=== PATIENT | female | born 1960 | race Hispanic/Latino ===

== ENCOUNTER 2020-09-02 13:12 | Emergency (ER) | payer MEDICAID ==
[2020-09-02 13:29] VITALS: BP 90/79
[2020-09-02] MEDS ORDERED: NALOXONE 2 MG/2 ML INJ ONE (13:41)
[2020-09-02] MEDS ORDERED: SODIUM CHLORIDE 0.9% 1000 ML 1,000 ML IV ONE (13:52)
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
[2020-09-02 14:40] LABS: Basophils # (Auto) 0.1 K/mm3 (0.0-0.1); Basophils % (Auto) 1.2 % (0.0-1.8); Eosinophils # (Auto) 0.3 K/mm3 (0.0-0.4); Eosinophils % (Auto) 3.2 % (0.0-4.3); Hematocrit 37.1 % (30.3-42.9); Hemoglobin 12.5 gm/dl (10.1-14.3); Lymphocytes # (Auto) 2.5 K/mm3 (1.2-5.4); Lymphocytes % (Auto) 28.5 % (13.4-35.0); Mean Corpuscular HGB Conc 34 % (30-34); Mean Corpuscular Volume 94 fl (79-97); Monocytes % (Auto) 11.2 % (0.0-7.3); Red Blood Count 3.96 M/mm3 (3.65-5.03); Red Cell Distribution Width 14.7 % (13.2-15.2)
[2020-09-02 14:51] LABS: Creatine Kinase MB 2.6 ng/mL (0.0-4.0)
[2020-09-02 14:52] LABS: Alanine Aminotransferase 13 units/L (7-56); Albumin 4.1 g/dL (3.9-5)
[2020-09-02 14:54] LABS: Bilirubin,Direct < 0.2 mg/dL (0-0.2)
[2020-09-02 15:18] LABS: BUN/Creatinine Ratio 13; Blood Urea Nitrogen 10 mg/dL (7-17); Calcium 9.1 mg/dL (8.4-10.2); Hemolysis Index 55
[2020-09-02 16:16] LABS: Platelet Count 148 K/mm3 (140-440)
[2020-09-03] MEDS ORDERED: NALOXONE 2 MG/2 ML INJ IV ONE (16:19)
== END 2020-09-02 16:15 | disposition home or self-care (01) ==
LOC: ED 13:12
DX: T42.4X1A Poisoning by benzodiazepines, accidental (unintentional), initial encounter (principal); T42.6X1A Poisoning by other antiepileptic and sedative-hypnotic drugs, accidental (unintentional), initial encounter; R00.1 Bradycardia, unspecified; R06.00 Dyspnea, unspecified; I10 Essential (primary) hypertension; R56.9 Unspecified convulsions; Z98.890 Other specified postprocedural states; Z79.2 Long term (current) use of antibiotics; Z88.8 Allergy status to other drugs, medicaments and biological substances; Y92.89 Other specified places as the place of occurrence of the external cause
CPT/HCPCS: 36415; 80048; 80076; 82550; 82553; 85025; 96374; 99284; J2310; J7030; 80320; G0480

== ENCOUNTER 2020-10-03 20:07 | Emergency (ER) | payer MEDICAID ==
[2020-10-03] MEDS ORDERED: LORazepam 2 MG/ML VIAL ONE (20:14)
[2020-10-03] MEDS ORDERED: levETIRAcetam 1000 MG/NS 0.75% 0 MG/0 ML BAG IV ONE (20:17)
[2020-10-03] MEDS ORDERED: levETIRAcetam 1000 MG/NS 0.75% 1,000 MG/100 ML BAG IV ONE ×2 (20:19→20:22)
[2020-10-03] MEDS ORDERED: SODIUM CHLORIDE 0.9% 1000 ML 1,000 ML ONE (20:20)
[2020-10-03] MEDS ORDERED: SODIUM CHLORIDE 0.9% 1000 ML 1,000 ML IV ONE (20:22)
[2020-10-03] MEDS ORDERED: LORazepam 2 MG/ML VIAL IV ONE (20:22)
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
[2020-10-03 20:37] LABS: Basophils % (Auto) 0.6 % (0.0-1.8); Eosinophils # (Auto) 0.1 K/mm3 (0.0-0.4); Eosinophils % (Auto) 2.3 % (0.0-4.3); Hematocrit 34.8 % (30.3-42.9); Hemoglobin 11.8 gm/dl (10.1-14.3); Lymphocytes # (Auto) 1.5 K/mm3 (1.2-5.4); Lymphocytes % (Auto) 23.2 % (13.4-35.0); Mean Corpuscular HGB Conc 34 % (30-34); Mean Corpuscular Volume 95 fl (79-97); Monocytes # (Auto) 0.6 K/mm3 (0.0-0.8); Monocytes % (Auto) 9.8 % (0.0-7.3); Platelet Count 173 K/mm3 (140-440); Red Blood Count 3.65 M/mm3 (3.65-5.03); Red Cell Distribution Width 14.8 % (13.2-15.2)
[2020-10-03 20:42] VITALS: BP 137/87
[2020-10-03 20:59] LABS: Alanine Aminotransferase 15 units/L (7-56); Albumin 3.7 g/dL (3.9-5); Blood Urea Nitrogen 4 mg/dL (7-17); Calcium 8.6 mg/dL (8.4-10.2); Hemolysis Index 16
[2020-10-03 21:00] LABS: BUN/Creatinine Ratio 6; Bilirubin,Direct < 0.2 mg/dL (0-0.2)
[2020-10-03 23:59] LABS: Bilirubin,Urine NEG (Negative); Blood,Urine NEG (Negative); Color,Urine Colorless (Yellow); Mucus,Urine FEW /HPF; Protein,Urine <15 mg/dL mg/dL (Negative); Urobilinogen,Urine < 2.0 mg/dL (<2.0)
[2020-10-04 00:10] LABS: Amphetamine Screen,Urine PRESUMPTIVE NEGATIVE; Benzodiazepines Screen,Urine PRESUMPTIVE NEGATIVE; Cannabinoid Screen,Urine PRESUMPTIVE NEGATIVE; Cocaine Screen,Urine PRESUMPTIVE NEGATIVE; Methadone Screen,Urine PRESUMPTIVE NEGATIVE; Opiate Screen,Urine PRESUMPTIVE NEGATIVE
[2020-10-04] MEDS ORDERED: fentaNYL 100 MCG/2 ML INJ IV ONE (02:29)
== END 2020-10-04 03:00 | disposition home or self-care (01) ==
LOC: ED 20:07
DX: R56.9 Unspecified convulsions (principal); I10 Essential (primary) hypertension; Z98.890 Other specified postprocedural states; Z90.710 Acquired absence of both cervix and uterus; Z79.2 Long term (current) use of antibiotics; Z88.8 Allergy status to other drugs, medicaments and biological substances
CPT/HCPCS: 36415; 36556; 80048; 80076; 80307; 81001; 85025; 96365; 96375; 99284; J1953; J2060; J3010; J7030; 80320; G0480

== ENCOUNTER 2020-12-03 13:09 | Emergency (ER) | payer MEDICAID ==
--- NOTE | 2020-12-03 14:05 | Event Note ---
ED Screening Note ED Screening Note: TO ER VIA EMS SP WITNESSED GRANDMAL SZ AT HOME NO FALL FATHER DESCRIBED G/M SZ TO EMS THEN EMS WITNESSED ANOTHER HERE IN ED ON KEPPRA PO BUT HAS NOT TAKEN IN 3 DAYS NO OTHER MEDS NO OTHER REPORTED PMH NOK FATHER This initial assessment/diagnostic orders/clinical plan/treatment(s) is/are subject to change based on patients health status, clinical progression and re- assessment by fellow clinical providers in the ED. Further treatment and workup at subsequent clinical providers discretion. Patient/guardian urged not to elope from the ED as their condition may be serious if not clinically assessed and managed. Initial orders include: A/C SZ DO- OFF MEDS
[2020-12-03] MEDS ORDERED: levETIRAcetam 1,000 MG in SODIUM CHLORIDE 0.9% 100 ML IV ONE (14:56)
[2020-12-03] MEDS ORDERED: levETIRAcetam 1000 MG/NS 0.75% 1,000 MG/100 ML BAG IV ONE (15:00)
[2020-12-03 15:04] LABS: Basophils % (Auto) 0.5 % (0.0-1.8); Eosinophils # (Auto) 0.1 K/mm3 (0.0-0.4); Eosinophils % (Auto) 1.2 % (0.0-4.3); Hemoglobin 12.6 gm/dl (10.1-14.3); Lymphocytes # (Auto) 0.7 K/mm3 (1.2-5.4); Lymphocytes % (Auto) 10.9 % (13.4-35.0); Mean Corpuscular HGB Conc 35 % (30-34); Mean Corpuscular Volume 92 fl (79-97); Monocytes # (Auto) 0.3 K/mm3 (0.0-0.8); Monocytes % (Auto) 4.9 % (0.0-7.3); Platelet Count 234 K/mm3 (140-440); Red Blood Count 3.91 M/mm3 (3.65-5.03)
[2020-12-03] MEDS ORDERED: LORazepam 2 MG/ML VIAL ONE (15:19)
[2020-12-03 15:26] LABS: Alanine Aminotransferase 7 units/L (7-56); Albumin 3.7 g/dL (3.9-5); Blood Urea Nitrogen 4 mg/dL (7-17); Calcium 8.7 mg/dL (8.4-10.2); Hemolysis Index 3
[2020-12-03] MEDS ORDERED: LORazepam 2 MG/ML VIAL IV ONE (15:26)
[2020-12-03 15:46] LABS: BUN/Creatinine Ratio 6
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
[2020-12-03 17:22] VITALS: BP 115/84
== END 2020-12-03 17:22 | disposition home or self-care (01) ==
LOC: ED 13:09
DX: R56.9 Unspecified convulsions (principal); I10 Essential (primary) hypertension; F17.200 Nicotine dependence, unspecified, uncomplicated; Z98.890 Other specified postprocedural states; Z79.2 Long term (current) use of antibiotics; Z79.899 Other long term (current) drug therapy; Z88.8 Allergy status to other drugs, medicaments and biological substances
CPT/HCPCS: 36415; 80053; 82550; 85025; 93005; 96374; 96375; 99284; J1953; J2060; 80320; G0480